=== PATIENT | female | born 1970 | race Two or more races ===

== ENCOUNTER 2023-09-10 01:59 | Inpatient (IN) | payer OTHER ==
[~2023-09-10] VITALS: Ht 152.4 cm; Wt 65.8 kg
[2023-09-10] MEDS ORDERED: TOPROL XL25 M1 (02:09)
[2023-09-10] MEDS ORDERED: ACTOS15 MG (02:09)
[2023-09-10] MEDS ORDERED: TRULICITY0.75 MG/0. (02:09)
[2023-09-10] MEDS ORDERED: JARDIANCE10 MG (02:10)
[2023-09-10] MEDS ORDERED: MEPERIDINE HCL/PF 50 MG/ML VIAL IM STA (04:31)
[2023-09-10] MEDS ORDERED: 0.9 % SODIUM CHLORIDE 1,000 ML IV STA (04:31)
[2023-09-10] MEDS ORDERED: HYOSCYAMINE SULFATE 0.125 MG TAB.SUBL SL STA (04:31)
[2023-09-10] MEDS ORDERED: PROMETHAZINE HCL 50 MG/ML AMPUL IM STA (04:32)
[2023-09-10 05:31] LABS: BILIRUBIN TOTAL 0.59 mg/dL (0.3-1.2); CALCIUM 9.2 mg/dL (8.5-10.1); CREATININE SERUM 0.63 mg/dL (0.55-1.02); GFR 99.23; GLOBULINA 3.9 G/DL (2.4-3.5); POTASSIUM 3.77 mEq/L (3.5-5.1); TOTAL PROTEIN 7.9 gm/dL (6.4-8.2)
[2023-09-10 06:16] LABS: HEMATOCRIT 43.7 % (36.0-45.00); HEMOGLOBIN 14.6 g/dL (12.0-15.00); MEAN CELL VOLUME 88.1 fL (80.00-100.00); MEAN CORPUSCULAR HEMOGLOBIN 29.3 pg (27.00-32.0); MEAN CORPUSCULAR HGB CONC 33.3 g/dl (32.0-36.0); RED BLOOD COUNT 4.97 M/uL (4.00-6.00); RED CELL DISTRIBUTION WIDTH 13.7 % (11.5-14.5)
[2023-09-10 06:56] LABS: PLATELET COUNT 293 K/uL (150-450)
[2023-09-10] MEDS ORDERED: PIPERACILLIN/TAZOBACTAM SODIUM 3.375 GM VIAL IV STA (07:45)
[2023-09-10 09:14] LABS: PH,URINE 5.5 (5.0-8.0); URINE APPEARANCE Cloudy; URINE BILIRRUBIN Negative (NEGATIVE); URINE COLOR Yellow; URINE LEUKOCYTE Trace; URINE NITRATE Negative; URINE PROTEIN Negative (NEGATIVE); URINE UROBILINOGEN 0.2 E.U./dl
[2023-09-10 09:18] LABS: URINE BACTERIA 2500.9 uL (0.0-1933); URINE EPITHELIAL CELLS 53.4 uL (0.0-38.8); URINE RBC 9.9 uL (0.0-20.8)
[2023-09-10 09:31] LABS: URINE BLOOD TRACES; URINE GLUCOSE >=1000 MG/DL (NEGATIVE)
[2023-09-10] MEDS ORDERED: FAMOTIDINE/PF 20 MG/10 ML SYRINGE IV PUSH STA (12:27)
[2023-09-10] MEDS ORDERED: ENALAPRILAT DIHYDRATE 1.25 MG/ML VIAL IV SCH (12:28)
[2023-09-10] MEDS ORDERED: CIPROFLOXACIN IN 5 % DEXTROSE 200 ML IV SCH (12:29)
[2023-09-10] MEDS ORDERED: FAMOTIDINE/PF 20 MG/2 ML VIAL IV SCH (12:29)
[2023-09-10] MEDS ORDERED: METRONIDAZOLE/SODIUM CHLORIDE 100 ML IV SCH (12:29)
[2023-09-10] MEDS ORDERED: ONDANSETRON HCL 4 MG in 0.9 % SODIUM CHLORIDE 50 ML IV PRN (12:30)
[2023-09-10] MEDS ORDERED: 0.9 % SODIUM CHLORIDE 1,000 ML IV SCH (12:30)
[2023-09-10] MEDS ORDERED: DEXTROSE 50 % IN WATER 0.5 G/ML DISP.SYRIN IV PRN (12:45)
[2023-09-10] MEDS ORDERED: INSULIN LISPRO 1,000 UNIT/10 ML UNITS SUBCUTANEO PRN (12:45)
[2023-09-10] MEDS ORDERED: ENALAPRILAT DIHYDRATE 1.25 MG/ML VIAL IV PRN (12:45)
[2023-09-10] MEDS ORDERED: MEPERIDINE HCL/PF 50 MG/ML VIAL IM SCH (13:00)
[2023-09-10 14:27] LABS: C-REACTIVE PROTEIN 1.24 MG/DL (0.00-0.29)
[2023-09-10 14:35] LABS: INR 1.03; PARTIAL THROMBOPLASTIN TIME 31.9 SECONDS (22.0-34.0)
[2023-09-10 14:45] LABS: PROTHROMBIN TIME 10.8 SECONDS (9.0-11.5)
[2023-09-10] MEDS ORDERED: DEXTROSE 5 % AND 0.9 % NACL 1,000 ML IV SCH (16:30)
[2023-09-11] MEDS ORDERED: METOPROLOL SUCCINATE 50 MG TAB.SR.24H PO SCH (14:47)
[2023-09-11] MEDS ORDERED: ACETAMINOPHEN 500 MG GEL..CAP PO PRN (15:00)
[2023-09-12 07:29] LABS: HEMATOCRIT 40.4 % (36.0-45.00); MEAN CELL VOLUME 88.9 fL (80.00-100.00); MEAN CORPUSCULAR HEMOGLOBIN 30.8 pg (27.00-32.0); MEAN CORPUSCULAR HGB CONC 34.6 g/dl (32.0-36.0); RED BLOOD COUNT 4.55 M/uL (4.00-6.00)
[2023-09-12 07:31] LABS: PLATELET COUNT 221 K/uL (150-450)
[2023-09-12 07:42] LABS: ALBUMIN 3.7 gm/dL (3.4-5.0); BILIRUBIN TOTAL 0.63 mg/dL (0.3-1.2); CALCIUM 9.1 mg/dL (8.5-10.1); CREATININE SERUM 0.66 mg/dL (0.55-1.02); GFR 94.04; GLOBULINA 3.4 G/DL (2.4-3.5); PHOSPHOROUS 2.8 mg/dL (2.5-4.9); POTASSIUM 3.66 mEq/L (3.5-5.1); TOTAL PROTEIN 7.1 gm/dL (6.4-8.2)
[2023-09-12 07:44] LABS: C-REACTIVE PROTEIN 2.64 MG/DL (0.00-0.29)
[2023-09-13] MEDS ORDERED: CIPRO500 MG PO (14:04)
[2023-09-13] MEDS ORDERED: INTESTINEX680 M1 PO (14:05)
[2023-09-13] MEDS ORDERED: METRONIDAZOLE500 MG PO (14:05)
[2023-09-13] MEDS ORDERED: PROTONIX40 MG PO (16:26)
== END 2023-09-13 15:40 | disposition home or self-care (01) | DRG 690 ==
LOC: ER 01:59 → MEDI 12:36 → SEC-K 12:36 → MEDI 15:51
PROVIDERS: General Practice; Internal Medicine Infectious Disease; ADMIT Internal Medicine; ATTEND Internal Medicine
PROC: BW21YZZ Computerized Tomography (CT Scan) of Abdomen and Pelvis using Other Contrast (ICD-10-PCS; principal; 2023-09-10)
PROC: CF1C1ZZ Planar Nuclear Medicine Imaging of Hepatobiliary System, All using Technetium 99m (Tc-99m) (ICD-10-PCS; 2023-09-11)
DX: N39.0 Urinary tract infection, site not specified (principal); K52.9 Noninfective gastroenteritis and colitis, unspecified; K81.1 Chronic cholecystitis; K82.8 Other specified diseases of gallbladder; R00.0 Tachycardia, unspecified; E11.9 Type 2 diabetes mellitus without complications; I10 Essential (primary) hypertension; Z79.4 Long term (current) use of insulin

== ENCOUNTER 2023-09-17 18:04 | Inpatient (IN) | payer OTHER ==
[~2023-09-17] VITALS: Ht 154.9 cm; Wt 65.8 kg
[~2023-09-17 18:04] MED LIST: ACTOS15 MG; CIPRO500 MG PO; INTESTINEX680 M1 PO; JARDIANCE10 MG; METRONIDAZOLE500 MG PO; PROTONIX40 MG PO; TOPROL XL25 M1; TRULICITY0.75 MG/0.
--- NOTE | 2023-09-17 18:10 | NUR ---
PACIENTE ALERTA Y ORIENTADA X 3. REFIERE DESDE LA MANANA DOLOR ABDOMINAL, DIARREAS X 4 Y VOMITOS X 6
[2023-09-17] MEDS ORDERED: IRBESARTAN150 MG PO (18:11)
[2023-09-17] MEDS ORDERED: 0.9 % SODIUM CHLORIDE 1,000 ML IV STA (18:23)
--- NOTE | 2023-09-17 18:39 | NUR ---
JODIE GREEN REALIZA LABORATORIOS ARUN ORDEN MEDICA BAJO MEDIDAS ASEPTICAS. SE ORIENTA A PTE SOBRE TRATAMIENTO QUIEN REFIERE ENTENDER Y ACEPTAR.
[2023-09-17 19:01] LABS: HEMATOCRIT 44.8 % (36.0-45.00); HEMOGLOBIN 15.2 g/dL (12.0-15.00); MEAN CELL VOLUME 87.8 fL (80.00-100.00); MEAN CORPUSCULAR HEMOGLOBIN 29.7 pg (27.00-32.0); MEAN CORPUSCULAR HGB CONC 33.8 g/dl (32.0-36.0); PLATELET COUNT 308 K/uL (150-450); RED BLOOD COUNT 5.11 M/uL (4.00-6.00); RED CELL DISTRIBUTION WIDTH 13.9 % (11.5-14.5)
[2023-09-17 19:26] LABS: CALCIUM 9.1 mg/dL (8.5-10.1); CREATININE SERUM 0.72 mg/dL (0.55-1.02); GFR 85.06; POTASSIUM 3.48 mEq/L (3.5-5.1)
[2023-09-17 20:04] LABS: URINE APPEARANCE Turbid; URINE BILIRRUBIN Negative (NEGATIVE); URINE BLOOD Trace; URINE COLOR Yellow; URINE LEUKOCYTE Negative; URINE NITRATE Negative; URINE PROTEIN Negative (NEGATIVE); URINE UROBILINOGEN 0.2 E.U./dl
[2023-09-17 20:08] LABS: URINE BACTERIA 700.3 uL (0.0-1933); URINE EPITHELIAL CELLS 48.5 uL (0.0-38.8); URINE RBC 18.5 uL (0.0-20.8); URINE WBC 11.8 uL (0.0-23.2)
[2023-09-17 20:15] LABS: URINE GLUCOSE >=1000 MG/DL (NEGATIVE)
[2023-09-17] MEDS ORDERED: PIPERACILLIN/TAZOBACTAM SODIUM 3.375 GM in DEXTROSE 5 % IN WATER 100 ML IV SCH (21:38)
[2023-09-17] MEDS ORDERED: FAMOTIDINE/PF 20 MG in 0.9 % SODIUM CHLORIDE 8 ML IV PUSH SCH (21:39)
[2023-09-17] MEDS ORDERED: MEPERIDINE HCL/PF 25 MG/ML VIAL IM PRN (21:45)
[2023-09-17] MEDS ORDERED: ONDANSETRON HCL 4 MG in 0.9 % SODIUM CHLORIDE 50 ML IV PRN (21:45)
[2023-09-17] MEDS ORDERED: ACETAMINOPHEN 500 MG GEL..CAP PO PRN (21:45)
[2023-09-17] MEDS ORDERED: 0.9 % SODIUM CHLORIDE 1,000 ML IV SCH (21:45)
[2023-09-17] MEDS ORDERED: KETOROLAC TROMETHAMINE 15 MG VIAL IU ONE (21:45)
[2023-09-18] MEDS ORDERED: 0.9 % SODIUM CHLORIDE 1,000 ML IV SCH (00:30)
[2023-09-18 00:39] LABS: INR 1.04; PARTIAL THROMBOPLASTIN TIME 29.8 SECONDS (22.0-34.0); PROTHROMBIN TIME 10.9 SECONDS (9.0-11.5)
[2023-09-18 00:44] LABS: ALBUMIN 3.8 gm/dL (3.4-5.0); BILIRUBIN TOTAL 0.59 mg/dL (0.3-1.2); BILIRUBIN,CONJUGATED 0.17 mg/dL (0.0-0.2); BILIRUBIN,UNCONJUGATED 0.42 mg/dL (0.0-0.6); TOTAL PROTEIN 6.9 gm/dL (6.4-8.2)
[2023-09-18] MEDS ORDERED: PIPERACILLIN/TAZOBACTAM SODIUM 3.375 GM VIAL IV ONE (16:29)
[2023-09-19 06:20] LABS: HEMATOCRIT 36.4 % (36.0-45.00); HEMOGLOBIN 12.1 g/dL (12.0-15.00); MEAN CELL VOLUME 88.2 fL (80.00-100.00); MEAN CORPUSCULAR HEMOGLOBIN 29.2 pg (27.00-32.0); MEAN CORPUSCULAR HGB CONC 33.2 g/dl (32.0-36.0); PLATELET COUNT 243 K/uL (150-450); RED BLOOD COUNT 4.13 M/uL (4.00-6.00); RED CELL DISTRIBUTION WIDTH 13.8 % (11.5-14.5)
[2023-09-19 07:02] LABS: ALBUMIN 3.2 gm/dL (3.4-5.0); BILIRUBIN TOTAL 0.52 mg/dL (0.3-1.2); CALCIUM 8.1 mg/dL (8.5-10.1); CREATININE SERUM 0.44 mg/dL (0.55-1.02); GFR 150.16; GLOBULINA 2.9 G/DL (2.4-3.5); PHOSPHOROUS 2.4 mg/dL (2.5-4.9); POTASSIUM 4.07 mEq/L (3.5-5.1); TOTAL PROTEIN 6.1 gm/dL (6.4-8.2)
[2023-09-19 07:04] LABS: C-REACTIVE PROTEIN 8.43 MG/DL (0.00-0.29)
[2023-09-19] MEDS ORDERED: METOPROLOL SUCCINATE 25 MG TAB.SR.24H PO SCH (12:55)
[2023-09-19] MEDS ORDERED: POTASSIUM PHOS,M-BASIC-D-BASIC 9 MM in 0.9 % SODIUM CHLORIDE 250 ML IV ONE (13:00)
[2023-09-19] MEDS ORDERED: DEXTROSE 5 % AND 0.9 % NACL 1,000 ML IV SCH (21:00)
[2023-09-20] MEDS ORDERED: METOPROLOL SUCCINATE 50 MG TAB.SR.24H PO SCH (09:00)
[2023-09-20] MEDS ORDERED: BUPIVACAINE HCL/PF 0.25% 30ML VIAL InF ONE (15:00)
[2023-09-20] MEDS ORDERED: ONDANSETRON HCL 2 MG/ML VIAL IV PRN (16:30)
[2023-09-20] MEDS ORDERED: 0.9 % SODIUM CHLORIDE 1,000 ML IV SCH (16:30)
[2023-09-20] MEDS ORDERED: PIPERACILLIN/TAZOBACTAM SODIUM 3.375 GM VIAL IV ONE (20:09)
[2023-09-20] MEDS ORDERED: MORPHINE SULFATE 4 MG/ML CARTRIDGE IV PRN (21:15)
[2023-09-20] MEDS ORDERED: DEXTROSE 5 %-0.45 % SOD CHLORD 1,000 ML IV SCH (21:15)
[2023-09-21 08:52] LABS: HEMOGLOBIN 12.9 g/dL (12.0-15.00); MEAN CELL VOLUME 86.7 fL (80.00-100.00); MEAN CORPUSCULAR HEMOGLOBIN 29.5 pg (27.00-32.0); PLATELET COUNT 320 K/uL (150-450); RED BLOOD COUNT 4.38 M/uL (4.00-6.00); RED CELL DISTRIBUTION WIDTH 13.9 % (11.5-14.5)
[2023-09-21 09:07] LABS: ALBUMIN 3.2 gm/dL (3.4-5.0); BILIRUBIN TOTAL 0.64 mg/dL (0.3-1.2); CALCIUM 8.4 mg/dL (8.5-10.1); CREATININE SERUM 0.5 mg/dL (0.55-1.02); GFR 129.56; GLOBULINA 3.4 G/DL (2.4-3.5); POTASSIUM 3.37 mEq/L (3.5-5.1); TOTAL PROTEIN 6.6 gm/dL (6.4-8.2)
== END 2023-09-21 18:02 | disposition home or self-care (01) | DRG 419 ==
LOC: ER 18:04 → MEDJ 21:41 → SURH 09-20 16:56 → MEDJ 09-20 19:33
PROVIDERS: Emergency Medicine; General Practice; Internal Medicine; Internal Medicine Infectious Disease; Surgery; ADMIT Internal Medicine; ATTEND Internal Medicine
PROC: BW40ZZZ Ultrasonography of Abdomen (ICD-10-PCS; 2023-09-17)
PROC: 0FT44ZZ Resection of Gallbladder, Percutaneous Endoscopic Approach (ICD-10-PCS; principal; 2023-09-20 12:00)
DX: K81.1 Chronic cholecystitis (principal)